=== PATIENT | male | born 1990 | race American Indian/Alaskan Native ===

== ENCOUNTER 2020-09-03 07:15 | Emergency (ER) | payer SELFPAY ==
[2020-09-03 07:20] VITALS: BP 154/102
== END 2020-09-03 08:35 | disposition left against medical advice (07) ==
LOC: ED 07:15
DX: K08.89 Other specified disorders of teeth and supporting structures (principal); Z53.21 Procedure and treatment not carried out due to patient leaving prior to being seen by health care provider

== ENCOUNTER 2020-09-11 14:38 | Emergency (ER) | payer SELFPAY ==
[2020-09-11 15:00] VITALS: BP 135/90
[2020-09-11] MEDS ORDERED: TETRACAINE 0.5% OPHTH SOLN 4ML OU ONE (15:06)
[2020-09-11] MEDS ORDERED: FLUORESCEIN 1 MG STRIP OP ONE (15:06)
--- NOTE | 2020-09-11 15:06 | Event Note ---
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 Further treatment and workup at subsequent clinical providers discretion. Patient/guardian urged not to elope from the ED as their condition may be serious if not clinically assessed and managed. Initial orders include: acc eval
--- NOTE | 2020-09-11 16:28 | Emergency Department Report ---
ED Eye Problem HPI - General Chief complaint: Eye Problems Stated complaint: EYE INJURY Time Seen by Provider: 09/11/20 15:04 Source: patient Mode of arrival: Ambulatory Limitations: No Limitations - History of Present Illness Initial comments: 30 year old male with no significant pmhx presents to ED c/o left eye pain. Patient states while at work this morning, he noticed his left eye started itching. He states that he irrigated his eye underneath some water, did provide some relief for about 30 minutes but then the pain started to intensify in the right eye. Patient does not recall injuring the eye nor does recall getting anything in the eye. He reports tearing from the left eye which has since improved upon arriving to the ER. He reports photosensitivity and eye redness. He denies any purulent discharge, foreign body sensation or vision changes. He denies any URI symptoms, headache fever or chills. He does not wear contacts or glasses. He denies any grinding, welding, or hammering of metal. MD chief complaint: eye pain -: Gradual (this morning) - Related Data Previous Rx's Medication Instructions Recorded Last Taken Type Amoxicillin/Potassium Clav 1 each PO BID #20 tablet 05/21/20 Unknown Rx [Augmentin 875-125 Tablet] Tobramycin 0.3% [Tobrex] 1 drop OS Q4HR 7 Days #1 bottle 09/11/20 Unknown Rx Allergies Allergy/AdvReac Type Severity Reaction Status Date / Time No Known Allergies Allergy Unverified 05/21/20 09:27 ED Review of Systems ROS: Stated complaint: EYE INJURY Other details as noted in HPI Comment: All other systems reviewed and negative Constitutional: denies: chills, fever Eyes: eye pain, eye discharge, other (eye redness) Respiratory: denies: cough, orthopnea, shortness of breath, SOB with exertion, wheezing Cardiovascular: denies: chest pain, palpitations Gastrointestinal: denies: abdominal pain, nausea, diarrhea Musculoskeletal: denies: back pain, joint swelling, arthralgia Skin: denies: rash, lesions Neurological: denies: headache, weakness, paresthesias Psychiatric: denies: anxiety, depression ED Past Medical Hx - Past Medical History Previous Medical History?: No - Surgical History Past Surgical History?: No - Social History Smoking Status: Never Smoker Substance Use Type: None - Medications Home Medications: Home Medications Medication Instructions Recorded Confirmed Last Taken Type Amoxicillin/Potassium Clav 1 each PO BID #20 tablet 05/21/20 Unknown Rx [Augmentin 875-125 Tablet] Tobramycin 0.3% [Tobrex] 1 drop OS Q4HR 7 Days #1 bottle 09/11/20 Unknown Rx ED Physical Exam - General Limitations: No Limitations General appearance: alert, in no apparent distress - Head Head exam: Present: atraumatic, normocephalic, normal inspection - Eye Eye exam: Present: normal appearance, PERRL, EOMI, conjunctival injection (moderate right eye), other (+photosensitivity right eye; No corneal abrasion, ulcerations, or lesion on pope lamp exam. no apparent perilimbic flushing. VS grossly normal). Absent: periorbital swelling, periorbital tenderness Pupils: Present: normal accommodation - Expanded Eye Exam Expanded Eyelids: Normal Inspection: Left Pupils: Regular, Round: Bilateral, Reactive: Bilateral Sclera/Conjunctival: Injection: Left Anterior chamber: Normal Inspection: Left - Neck Neck exam: Present: normal inspection - Respiratory Respiratory exam: Absent: respiratory distress - Cardiovascular Cardiovascular Exam: Present: regular rate - Neurological Exam Neurological exam: Present: alert, oriented X3, CN II-XII intact, normal gait - Psychiatric Psychiatric exam: Present: normal affect, normal mood - Skin Skin exam: Present: intact ED Course Vital Signs 09/11/20 14:59 Temperature 98.2 F Pulse Rate 71 Respiratory 14 Rate Blood Pressure 135/90 O2 Sat by Pulse 92 Oximetry Critical care attestation.: If time is entered above; I have spent that time in minutes in the direct care of this critically ill patient, excluding procedure time. ED Disposition Clinical Impression: Conjunctivitis Disposition: DC-01 TO HOME OR SELFCARE Is pt being admited?: No Does the pt Need Aspirin: No Condition: Stable Instructions: Chemical Conjunctivitis, Adult, Viral Conjunctivitis, Adult Additional Instructions: Use eye drops as prescribed. You can take tylenol or motrin for pain. Wear sunglasses but do not put a patch over eye. Follow up with local mat linker/ophthamologist if symptoms persist. Return to ED if your symptoms worsens. Prescriptions: Tobramycin 0.3% [Tobrex] 1 drop OS Q4HR 7 Days #1 bottle Referrals: PRIMARY CARE, [Primary Care Provider] - 3-5 Days Forms: Work/School Release Form(ED) Time of Disposition: 16:34
== END 2020-09-11 16:30 | disposition home or self-care (01) ==
LOC: ED 14:38
DX: H10.9 Unspecified conjunctivitis (principal); Z79.899 Other long term (current) drug therapy
CPT/HCPCS: 99283